=== PATIENT | female | born 1965 | race American Indian/Alaskan Native ===

== ENCOUNTER 2018-12-17 12:35 | Emergency (ER) | payer OTHER ==
[2018-12-17] MEDS ORDERED: BOOSTRIX IM ONE (14:57)
[2018-12-17] MEDS ORDERED: NORCO 5/325 PO ONE (14:57)
[2018-12-17] MEDS ORDERED: TRIPLE ANTIBIOTIC TP ONE (14:57)
[2018-12-17] MEDS ORDERED: XYLOCAINE 1%/ EPI 1:100,000 INFILTRATI ONE (14:57)
[2018-12-17] MEDS ORDERED: NACL 0.9% IR ONE (14:57)
--- NOTE | 2018-12-17 14:57 | Emergency Department Report ---
ED Laceration HPI - HPI Chief Complaint: Laceration/Recheck/Suture Stated Complaint: LACERATION Time Seen by Provider: 12/17/18 14:56 Other History: Patient is a 53-year-old who comes to the ER after hitting her head on the car trunk door. She had no LOC. There's been no nausea vomiting. Patient has a laceration above her left eye on her hairline. Bleeding is controlled. Patient is ambulatory and alert and oriented on exam. ED Review of Systems ROS: Stated complaint: LACERATION Other details as noted in HPI Comment: All other systems reviewed and negative ED Past Medical Hx - Past Medical History Hx Hypertension: Yes Additional medical history: Lupus - Surgical History Hx Cholecystectomy: Yes Additional Surgical History: Hysterectomy, removal ovarian cyst - Family History Family history: no significant - Medications Home Medications: Home Medications Medication Instructions Recorded Confirmed Last Taken Type traMADol [Ultram] 50 mg PO Q6HR PRN #12 tablet 12/17/18 Unknown Rx Laceration Physical Exam - Exam General: Vital signs noted. No distress. Alert and acting appropriately. bp 150/90 and HR 90 Laceration Location: Head Laceration Exam: Yes Normal Distal CMS, No Foreign Body, No Exposed Tendon, Vessel, or Nerve, No Tendon Injury - Laceration /Wound Repair head Wound Location: head Wound Length (cm): 6 Wound's Depth, Shape: superficial Wound Explored: clean Irrigated w/ Saline (ccs): 50 Betadine Prep?: Yes Anesthesia: 1% Lidocaine Volume Anesthetic (ccs): 3 Wound Debrided: minimal Wound Repaired With: sutures Suture Size/Type: 3:0 Number of Sutures: 3 Layer Closure?: No Sterile Dressing Applied?: Yes ED Medical Decision Making - Medical Decision Making wound cleaned and repaired dc home with family and dc plan of care Vital Signs 12/17/18 12/17/18 12:41 16:48 Temperature 98.3 F Pulse Rate 101 H 79 Respiratory 20 16 Rate Blood Pressure 158/114 139/104 [Left] O2 Sat by Pulse 99 95 Oximetry - Differential Diagnosis simple lac Critical care attestation.: If time is entered above; I have spent that time in minutes in the direct care of this critically ill patient, excluding procedure time. ED Disposition Clinical Impression: Laceration Disposition: DC-01 TO HOME OR SELFCARE Is pt being admited?: No Does the pt Need Aspirin: No Condition: Stable Instructions: Laceration (ED) Additional Instructions: ice sleep sitting up motrin or tylenol for mild pain clean with soap and water twice per day no ointments keep covered with bandaid follow up in 5 days for suture removal Prescriptions: traMADol [Ultram] 50 mg PO Q6HR PRN #12 tablet PRN Reason: Pain Referrals: PRIMARY CARE, [Primary Care Provider] - 3-5 Days Time of Disposition: 16:35
[2018-12-17 16:49] VITALS: BP 139/104
== END 2018-12-17 16:49 | disposition home or self-care (01) ==
LOC: ED 12:35
DX: S01.112A Laceration without foreign body of left eyelid and periocular area, initial encounter (principal); I10 Essential (primary) hypertension; M32.9 Systemic lupus erythematosus, unspecified; Z90.49 Acquired absence of other specified parts of digestive tract; Z90.710 Acquired absence of both cervix and uterus; Z79.899 Other long term (current) drug therapy; Z88.0 Allergy status to penicillin; W22.8XXA Striking against or struck by other objects, initial encounter; Y93.89 Activity, other specified; Y92.89 Other specified places as the place of occurrence of the external cause; Y99.8 Other external cause status
CPT/HCPCS: 90471; 90715; 96372; 99282; A6250